=== PATIENT | female | born 1945 | race Caucasian/White ===

== ENCOUNTER → 2017-02-11 | Outpatient (CLI) | payer MEDICARE, MEDICAID ==
[~2017-02-11] MED LIST: BELLADONNA PO; BISOPROLOL FUMA10 MG PO; CRESTOR5 MG PO; LEVOTHYROXIN0.025 M2 PO; LORTAB 5/500 501 TAB PO; METFORMIN 500M500 M1 PO; NAPROSYN 500MG500 MG PO; OXAZEPAM10 MG PO; PLAVIX75 MG PO; [UNRECOGNIZED DRUG - OTHER] PO
--- NOTE | 2017-02-11 14:45 | RADIOLOGY REPORT PS360 ---
CHEST(2 VIEWS-NOT PORTABLE) HISTORY: COUGH, SPUTUM, COPD ORDERING PHYSICIAN: Perry Camara MD PATIENT AGE: 71 years COMPARISON: 01/15/2008 FINDINGS: The cardiomediastinal silhouette and pulmonary vascularity are within normal limits. There is chronic coarsening of the bronchovascular markings suggesting underlying peribronchial inflammatory change . No lobar consolidation or collapse is evident. There is a calcified granuloma in the right lower lobe.. No acute bony abnormalities. IMPRESSION: 1. Chronic coarsening of the bronchovascular markings suggesting chronic peribronchial inflammatory change. This could be seen with chronic bronchitis/ smokers lung. Please correlate with clinical findings. 2. No lobar consolidation or collapse.
== END ==
LOC: RAD 14:20
DX: R05 Cough (principal); R09.3 Abnormal sputum; J44.9 Chronic obstructive pulmonary disease, unspecified